=== PATIENT | female | born 1985 | race Two or more races ===

== ENCOUNTER 2018-01-01 11:50 | Emergency (ER) | payer OTHER ==
[~2018-01-01] VITALS: Ht 165.1 cm; Wt 56.7 kg
== END 2018-01-01 13:00 | disposition home or self-care (01) ==
LOC: ER 11:50
DX: K29.70 Gastritis, unspecified, without bleeding (principal)

== ENCOUNTER 2021-06-18 12:47 | Outpatient (CLI) | payer OTHER | END 2021-06-18 12:52 | disposition home or self-care (01) | LOC: RAD 12:47 | PROVIDERS: ATTEND Orthopaedic Surgery | DX: R07.89 Other chest pain (principal) ==

== ENCOUNTER 2021-06-18 12:58 | Outpatient (CLI) | payer OTHER | END 2021-06-18 13:09 | disposition home or self-care (01) | LOC: EKG 12:58 | PROVIDERS: ATTEND Orthopaedic Surgery | DX: I10 Essential (primary) hypertension (principal) ==

== ENCOUNTER 2022-06-16 10:19 | Outpatient (CLI) | payer OTHER | END 2022-06-16 10:45 | disposition home or self-care (01) | LOC: MAMO-SONO 10:19 | PROVIDERS: ATTEND Obstetrics & Gynecology | DX: N64.4 Mastodynia (principal); R10.2 Pelvic and perineal pain ==

== ENCOUNTER 2023-03-05 10:28 | Emergency (ER) | payer OTHER ==
[~2023-03-05] VITALS: Ht 165.1 cm; Wt 61.2 kg
[2023-03-05 11:54] LABS: HEMATOCRIT 33.8 % (36.0-45.00); HEMOGLOBIN 11.6 g/dL (12.0-15.00); MEAN CELL VOLUME 92.2 fL (80.00-100.00); MEAN CORPUSCULAR HEMOGLOBIN 31.7 pg (27.00-32.0); MEAN CORPUSCULAR HGB CONC 34.3 g/dl (32.0-36.0); PLATELET COUNT 281 K/uL (150-450); RED BLOOD COUNT 3.66 M/uL (4.00-6.00); RED CELL DISTRIBUTION WIDTH 12.5 % (11.5-14.5)
[2023-03-05 12:01] LABS: URINE APPEARANCE Clear; URINE BILIRRUBIN Negative (NEGATIVE); URINE BLOOD Small; URINE COLOR Yellow; URINE GLUCOSE Negative (NEGATIVE); URINE LEUKOCYTE Trace; URINE NITRATE Negative; URINE PROTEIN Negative (NEGATIVE)
[2023-03-05 12:05] LABS: URINE BACTERIA 241.8 uL (0.0-1933); URINE EPITHELIAL CELLS 11.4 uL (0.0-38.8); URINE RBC 3.5 uL (0.0-20.8); URINE WBC 17.6 uL (0.0-23.2)
[2023-03-05 12:17] LABS: INR 1.04; PARTIAL THROMBOPLASTIN TIME 24.4 SECONDS (22.0-34.0); PROTHROMBIN TIME 10.9 SECONDS (9.0-11.5)
[2023-03-05 12:38] LABS: CALCIUM 9.1 mg/dL (8.5-10.1); CREATININE SERUM 0.83 mg/dL (0.55-1.02); GFR 76.94; POTASSIUM 3.98 mEq/L (3.5-5.1)
[2023-03-05] MEDS ORDERED: PRENA1 TRUE CO1 EACH PO (13:43)
== END 2023-03-05 13:59 | disposition home or self-care (01) ==
LOC: ER 10:29
PROVIDERS: General Practice
DX: O20.8 Other hemorrhage in early pregnancy (principal); Z3A.01 Less than 8 weeks gestation of pregnancy

== ENCOUNTER 2023-06-14 14:36 | Outpatient (CLI) | payer OTHER ==
[~2023-06-14 14:36] MED LIST: PRENA1 TRUE CO1 EACH PO
== END 2023-06-14 14:38 | disposition home or self-care (01) ==
LOC: PRENATAL 14:36
PROVIDERS: ATTEND Obstetrics & Gynecology Maternal & Fetal Medicine
DX: O35.9XX0 Maternal care for (suspected) fetal abnormality and damage, unspecified, not applicable or unspecified (principal); O35.3XX0 Maternal care for (suspected) damage to fetus from viral disease in mother, not applicable or unspecified; O44.00 Complete placenta previa NOS or without hemorrhage, unspecified trimester; O09.529 Supervision of elderly multigravida, unspecified trimester; O98.919 Unspecified maternal infectious and parasitic disease complicating pregnancy, unspecified trimester; Z3A.20 20 weeks gestation of pregnancy

== ENCOUNTER 2023-10-14 10:45 | Inpatient (IN) | payer OTHER ==
[~2023-10-14] VITALS: Ht 165.1 cm; Wt 2.7 kg
[2023-10-14 12:39] LABS: URINE APPEARANCE Clear; URINE BILIRRUBIN Negative (NEGATIVE); URINE BLOOD Negative; URINE COLOR Yellow; URINE GLUCOSE Negative (NEGATIVE); URINE LEUKOCYTE Negative; URINE NITRATE Negative; URINE PROTEIN Negative (NEGATIVE); URINE UROBILINOGEN 0.2 E.U./dl
[2023-10-14 12:41] LABS: URINE BACTERIA 376.6 uL (0.0-1933); URINE EPITHELIAL CELLS 19.1 uL (0.0-38.8); URINE RBC 3.6 uL (0.0-20.8); URINE WBC 7.1 uL (0.0-23.2)
[2023-10-14 12:48] LABS: HEMATOCRIT 34.1 % (36.0-45.00); HEMOGLOBIN 11.3 g/dL (12.0-15.00); MEAN CELL VOLUME 94.2 fL (80.00-100.00); MEAN CORPUSCULAR HEMOGLOBIN 31.3 pg (27.00-32.0); MEAN CORPUSCULAR HGB CONC 33.2 g/dl (32.0-36.0); PLATELET COUNT 265 K/uL (150-450); RED BLOOD COUNT 3.62 M/uL (4.00-6.00); RED CELL DISTRIBUTION WIDTH 13.4 % (11.5-14.5)
[2023-10-14 13:08] LABS: INR < 0.93; PARTIAL THROMBOPLASTIN TIME 24.6 SECONDS (22.0-34.0); PROTHROMBIN TIME 9.3 SECONDS (9.0-11.5)
[2023-10-14 13:17] LABS: ALBUMIN 2.7 gm/dL (3.4-5.0); BILIRUBIN TOTAL 0.33 mg/dL (0.3-1.2); CALCIUM 8.8 mg/dL (8.5-10.1); CREATININE SERUM 0.7 mg/dL (0.55-1.02); GFR 93.16; GLOBULINA 3.4 G/DL (2.4-3.5); POTASSIUM 3.88 mEq/L (3.5-5.1); TOTAL PROTEIN 6.1 gm/dL (6.4-8.2)
[2023-10-21] MEDS ORDERED: CEFAZOLIN SODIUM 1,000 MG VIAL IV ONE (09:00)
[2023-10-21] MEDS ORDERED: OXYTOCIN 10 UNITS/ML VIAL IV ONE (09:00)
[2023-10-21] MEDS ORDERED: ERYTHROMYCIN BASE 1 GM TUBE OP ONE (09:00)
[2023-10-21] MEDS ORDERED: PROMETHAZINE HCL 50 MG/ML AMPUL IM PRN (10:00)
[2023-10-21] MEDS ORDERED: MEPERIDINE HCL/PF 50 MG/ML VIAL IM PRN (10:00)
[2023-10-21] MEDS ORDERED: CEFAZOLIN SODIUM 1,000 MG VIAL IV SCH (14:00)
[2023-10-22 01:37] LABS: HEMATOCRIT 32.1 % (36.0-45.00); HEMOGLOBIN 11.1 g/dL (12.0-15.00); MEAN CELL VOLUME 94.8 fL (80.00-100.00); MEAN CORPUSCULAR HEMOGLOBIN 32.6 pg (27.00-32.0); MEAN CORPUSCULAR HGB CONC 34.4 g/dl (32.0-36.0); PLATELET COUNT 232 K/uL (150-450); RED BLOOD COUNT 3.39 M/uL (4.00-6.00); RED CELL DISTRIBUTION WIDTH 13.8 % (11.5-14.5)
[2023-10-22] MEDS ORDERED: SIMETHICONE 125 MG CAPSULE PO SCH (09:00)
[2023-10-22] MEDS ORDERED: DOCUSATE SODIUM 100MG CAP PO SCH (09:17)
[2023-10-22] MEDS ORDERED: IBUprofen 800 MG TABLET PO PRN (09:30)
[2023-10-24] MEDS ORDERED: IBUPROFEN800 MG PO (08:25)
== END 2023-10-24 10:50 | disposition home or self-care (01) | DRG 788 ==
LOC: O/R 10-21 05:23 → OB/GYN 10-21 05:23
PROVIDERS: ADMIT Specialist; ATTEND Specialist
PROC: 4A1HXCZ Monitoring of Products of Conception, Cardiac Rate, External Approach (ICD-10-PCS; 2023-10-21)
PROC: 10D00Z1 Extraction of Products of Conception, Low, Open Approach (ICD-10-PCS; principal; 2023-10-21 07:00)
DX: O34.211 Maternal care for low transverse scar from previous cesarean delivery (principal); Z3A.38 38 weeks gestation of pregnancy; Z37.0 Single live birth; Z20.822 Contact with and (suspected) exposure to COVID-19